=== PATIENT | female | born 1955 | race Caucasian/White ===

== ENCOUNTER 2017-10-02 13:02 | Inpatient (IN) | payer MEDICARE, OTHER ==
[~2017-10-02] VITALS: Ht 170.2 cm; Wt 93.9 kg
[~2017-10-02 13:02] MED LIST: BUPR150ER PO; CHOL10002 PO; CLON.1 PO; CYAN500 PO; Complex B-1001 EACH PO; DULO60 PO; ERGO400 PO; IBUP800 PO; LETR2.5 PO; LIDO5TO TOP; LISI20 PO; LOPE2C PO; MIRALAX17 GM PO; TRAZ50 PO
[2017-10-08 05:26] LABS: BASOPHILS ABSOLUTE AUTO 0.02 K/mm3 (0.00-0.23); BASOPHILS PERCENT AUTO 0 % (0-2); EOSINOPHILS ABSOLUTE AUTO 0.01 K/mm3 (0.00-0.68); EOSINOPHILS PERCENT AUTO 0 % (0-6); Hematocrit 30.4 % (33.0-51.0); Hemoglobin 9.8 g/dL (11.5-16.0); IMMATURE GRAN ABSOLUTE AUTO 0.04 K/mm3 (0.00-0.10); IMMATURE GRAN PERCENT AUTO 0 % (0-1); LYMPHOCYTES ABSOLUTE AUTO 1.86 K/mm3 (0.84-5.20); LYMPHOCYTES PERCENT AUTO 15 % (21-46); MONOCYTES PERCENT AUTO 6 % (4-13); Mean Corpuscular HGB 30.2 pg (26.0-34.0); Mean Corpuscular HGB Conc 32.2 g/dL (31.5-36.5); Mean Corpuscular Volume 94 fL (80-100); Mean Platelet Volume 9.6 fL (9.1-12.4); NEUTROPHILS ABSOLUTE AUTO 9.81 K/mm3 (1.96-9.15); NEUTROPHILS PERCENT AUTO 78 % (41-73); Platelet Count 219 K/mm3 (150-400); RDW Coefficient Variation 13.8 % (11.7-14.2); RDW Standard Deviation 47.1 fL (35.1-46.3); Red Blood Cell Count 3.24 M/mm3 (3.80-5.20); White Blood Cell Count 12.54 K/mm3 (4.00-11.30)
[2017-10-08 05:41] LABS: Bun/Creatinine Ratio 14.2 (12.0-20.0); Calcium, Blood 8.3 mg/dL (8.5-10.1); Creatinine, Blood 1.2 mg/dL (0.40-1.00); Potassium, Blood 4.2 mmol/L (3.5-5.5)
[2017-10-08] MEDS ORDERED: OXYC5 PO (14:08)
== END 2017-10-09 12:52 | disposition home or self-care (01) | DRG 470 ==
LOC: SURS 10-07 05:56 → PRE IP 10-07 07:30 → SURS 10-07 10:35
PROVIDERS: Orthopaedic Surgery
PROC: 0SR904Z Replacement of Right Hip Joint with Ceramic on Polyethylene Synthetic Substitute, Open Approach (ICD-10-PCS; principal; 2017-10-07 07:30)
DX: M16.11 Unilateral primary osteoarthritis, right hip (principal); I10 Essential (primary) hypertension; E78.00 Pure hypercholesterolemia, unspecified; E66.9 Obesity, unspecified; Z68.32 Body mass index [BMI] 32.0-32.9, adult
CPT/HCPCS: 36415; 72170; 80048; 83735; 85025; 86850; 86900; 86901; 88300; 97110; 97116; 97161; 97530; C1776; G8978; G8979; G8980; J0171; J0360; J0690; J0735; J1100; J1885; J2001; J2250; J2405; J2710; J2795; J3010; J7120

== ENCOUNTER 2017-10-11 22:48 | Emergency (ER) | payer MEDICARE, OTHER ==
[~2017-10-11] VITALS: Ht 167.6 cm; Wt 90.7 kg
[~2017-10-11 22:48] MED LIST changes: +OXYC5 PO
== END 2017-10-12 05:29 | disposition home or self-care (01) ==
LOC: ER 22:48
DX: Z48.817 Encounter for surgical aftercare following surgery on the skin and subcutaneous tissue (principal); Z91.018 Allergy to other foods; Z79.899 Other long term (current) drug therapy; Z87.891 Personal history of nicotine dependence; Z96.641 Presence of right artificial hip joint
CPT/HCPCS: 99282

== ENCOUNTER 2018-02-26 06:10 | Day surgery (SDC) | payer MEDICARE, OTHER ==
[~2018-02-26] VITALS: Ht 170.2 cm; Wt 94.3 kg
== END 2018-02-26 12:28 | disposition home or self-care (01) ==
LOC: ORSCSDS 06:10
PROVIDERS: Orthopaedic Surgery
PROC: 0RNJ4ZZ Release Right Shoulder Joint, Percutaneous Endoscopic Approach (ICD-10-PCS; principal; 2018-02-26 07:30)
PROC: 0LQ14ZZ Repair Right Shoulder Tendon, Percutaneous Endoscopic Approach (ICD-10-PCS; principal; 2018-02-26 07:30)
DX: M75.111 Incomplete rotator cuff tear or rupture of right shoulder, not specified as traumatic (principal); I10 Essential (primary) hypertension; Z87.891 Personal history of nicotine dependence; Z79.899 Other long term (current) drug therapy; E03.9 Hypothyroidism, unspecified
CPT/HCPCS: C1713; J0171; J0690; J2405; J3010; J7120

== ENCOUNTER → 2023-07-30 | Outpatient (CLI) | payer MEDICARE, OTHER | LOC: LAB SHORT 15:21 → LAB 15:21 | DX: L57.0 Actinic keratosis (principal) | CPT/HCPCS: 88305 ==